=== PATIENT | female | born 1935 | race Caucasian/White ===

== ENCOUNTER → 2016-09-29 | Outpatient (CLI) | payer OTHER, BC ==
[~2016-09-29] MED LIST: ALEVE220 MG PO; AMBIEN 10 MG TA10 MG PO; ATIVAN1 MG PO; CALCIUM CARBO1000 MG PO; CALCIUM PO; CELEXA 10 MG TA10 M1 PO; DAILY VALUE1 EACH PO; DOXEPIN 50MG CA50 M1 GT; FEXOFENADINE-P1 EACH PO; FISH OIL SOFTG1 EACH PO; LISINOPRIL10 MG PO; METOCLOPRAMIDE10 MG PO; OCUVITE TABLET1 EAC1 PO; ONDANSETRON ODT4 MG PO; PRILOSEC 20 MG20 MG PO; SKELAXIN 800 M800 M1 PO; VITAMIN D 11000 UNIT PO; ZOCOR 20 MG TAB20 MG PO; [UNRECOGNIZED DRUG - OTHER] PO; [UNRECOGNIZED DRUG - OTHER] PO
== END ==
LOC: BC 08:54
DX: Z12.31 Encounter for screening mammogram for malignant neoplasm of breast (principal)

== ENCOUNTER → 2017-11-11 | Outpatient (CLI) | payer OTHER, BC | LOC: RAD 01:38 | DX: Z12.31 Encounter for screening mammogram for malignant neoplasm of breast (principal) ==

== ENCOUNTER → 2018-02-23 | Outpatient (CLI) | payer OTHER, BC | LOC: RAD 02-08 14:33 | DX: K21.9 Gastro-esophageal reflux disease without esophagitis (principal); K22.0 Achalasia of cardia; I85.00 Esophageal varices without bleeding; K44.9 Diaphragmatic hernia without obstruction or gangrene; R13.10 Dysphagia, unspecified ==

== ENCOUNTER → 2018-12-30 | Outpatient (CLI) | payer OTHER, BC | LOC: RAD 15:21 | DX: Z12.31 Encounter for screening mammogram for malignant neoplasm of breast (principal) ==

== ENCOUNTER 2019-01-19 08:40 | Day surgery (SDC) | payer OTHER, BC ==
[~2019-01-19] VITALS: Ht 147.3 cm; Wt 62.6 kg
[~2019-01-19 08:40] MED LIST changes: +ALLEGRA ALLERG180 MG PO; +CALCIUM 600 +1 EAC1 PO; +CENTRUM SILVER1 EAC4 PO; +GABAPENTIN 100100 MG PO; +LEVOTHYROXINE0.05 MG PO; +OMEPRAZOLE40 MG PO; +TRAMADOL 50 MG50 MG PO; +TRAZODONE HCL50 MG PO; +VITAMIN D-32000 UNIT PO
[2019-01-19 10:40] VITALS: BP 164/76
--- NOTE | 2019-02-06 06:11 | O ---
[facility] [place] [address] OPERATIVE REPORT Name: ALINA OCASIO Room #: DEP [facility].#: [id number] Admission: 01/19/19 Attend Phys: Robert Alcaraz MD Discharge: 01/19/19 Date of : 39 Report #: [id number] THIS REPORT FOR: //name// CC: ROXIE Alcaraz DATE OF SERVICE: 01/19/2019 SURGEON: Robert Alcaraz MD INTELLECTUAL PROPERTY MANAGER: None. PREOPERATIVE DIAGNOSIS: Bilateral upper lid dermatochalasia with superior visual field defect. POSTOPERATIVE DIAGNOSIS: Bilateral upper lid dermatochalasia with superior visual field defect. OPERATION PERFORMED: Bilateral upper lid functional blepharoplasty. ANESTHESIA: Local with IV sedation. COMPLICATIONS: None. INDICATIONS FOR SURGERY: This patient has acquired upper lid dermatochalasia with superior visual field loss both eyes because of excessive upper lid tissues to include skin and fat. Visual field testing demonstrates dense superior visual defects. Retesting with the upper lid elevated shows an improvement in visual field loss of over 30% and in excess of 12 degrees. The current procedures are undertaken in order to improve the patient's visual function. Informed consent was obtained to include but not limited to the loss of vision, bleeding, infection, scarring, failure to improve the problem and need for further surgery. DESCRIPTION OF OPERATION: The patient was taken to the operating room, where 2% Xylocaine with epinephrine mixed with equal parts of 0.75% Marcaine with Wydase was administered transcutaneously to each upper lid. The patient was then prepped and draped in the usual sterile fashion and a skin-marking pen was then utilized to outline an upper lid crease that was symmetrical on each side. Graefe forceps were then used to quantitate the redundant upper lid skin and it was similarly outlined. The incisions were then made with Estrada scissors and a skin-muscle flap removed from each side with high-temp cautery. Hemostasis was achieved with the monopolar cautery as it was throughout the case. The [address] [address] OPERATIVE REPORT Name: ALINA OCASIO Room #: DEP [facility] [place].#: [id number] Admission: 01/19/19 Attend Phys: Robert Alcaraz MD Discharge: 01/19/19 Date of : 37 Report #: [id number] orbital septum was then identified and the central and medial fat pads were inspected. The redundant soft tissue was then sculpted with the monopolar cautery. The upper lid crease was then reformed with tightening of the pretarsal orbicularis muscle. The upper lid crease was then further reformed with multiple interrupted 6-0 chromic sutures. The skin was then closed with a running 6-0 plain gut suture. The wound was then cleaned and dressed with ophthalmic antibiotic ointment and a nonstick dressing. The patient was transported to the recovery area, where cold compresses were applied, having tolerated the procedure well with no anesthetic or operative complications being noted. <ELECTRONICALLY SIGNED> By: Robert Alcaraz MD 02/06/19 0611 1041 1050 Robert Alcaraz MD /nt
== END 2019-01-19 12:05 | disposition home or self-care (01) ==
LOC: OR 08:40 → TBA 09:05 → OR 12:05
DX: H02.831 Dermatochalasis of right upper eyelid (principal); H02.834 Dermatochalasis of left upper eyelid; H53.462 Homonymous bilateral field defects, left side; H53.461 Homonymous bilateral field defects, right side; E11.9 Type 2 diabetes mellitus without complications; K21.9 Gastro-esophageal reflux disease without esophagitis; Z98.41 Cataract extraction status, right eye; Z98.42 Cataract extraction status, left eye; Z90.710 Acquired absence of both cervix and uterus; Z85.820 Personal history of malignant melanoma of skin; Z90.49 Acquired absence of other specified parts of digestive tract; Z98.0 Intestinal bypass and anastomosis status; Z88.8 Allergy status to other drugs, medicaments and biological substances; Z79.899 Other long term (current) drug therapy; Z98.890 Other specified postprocedural states; Z87.01 Personal history of pneumonia (recurrent)
CPT/HCPCS: 50010; 50101; 50386; 50398; 51636; 56531; 62110; 62850; 70005

== ENCOUNTER 2020-08-06 12:01 | Inpatient (IN) | payer OTHER, BC ==
[~2020-08-06] VITALS: Ht 149.9 cm; Wt 65.8 kg
--- NOTE | ~2020-08-06 | EMS ---
[address] [address] EMS Patient Care Report Name: ALINA OCASIO Room #: REG [facility] Weber#: [id number] Admission: 08/06/20 Attend Phys: Discharge: Date of : 37 Report #: [id number] THIS REPORT FOR: //name// Report Transmitted: 08/06/2020 13:24 EMS Care Summary [place], [place]/[facility] Incident [id number] @ 08/06/2020 11:26 Incident Location [address] [place] [address] Patient ALINA OCASIO Female, 85 Years 1935 Patient Address [address] [address] Patient History None Reported, Patient Allergies Ibuprofen, Patient Medications Other, Chief Complaint forearm injury Disposition Transported No Lights/[place] Dispatch Reason Falls Transported To [facility] Narrative ems entered through garage door. pt found sitting upright on living room floor and alert. pt a&ox4 gcs 15 and presented in mild discomfort. pt stated she fell in he garage approx 4 hrs earlier and crawled to living room. neg loc. neg blood thinners. pt complained of L forearm pain. pt stated she thinks she broke [address] [address] EMS Patient Care Report Name: ALINA OCASIO Room #: REG [facility]#: [id number] Admission: 08/06/20 Attend Phys: Discharge: Date of : 37 Report #: [id number] her arm. pt was assisted upright into chair. exam unremarkable. pt reported pain on rom. pt stated the L forearm has been previously fx. pt agreed to be transported to [facility]. pt stood up and walked around house and collected her belongings. pt was assisted to ems cot. pt was transferred onto ems cot and was secured in a semi fowlers position without incident. pt was loaded into ambulance. pt was transported non emergent. transport was uneventful and pt rested on ems cot. pt care was transferred to appropriate staff and ems goes back in service. pts wallets, phone, and edge baster were left with pt. pts house was locked up. Initial Vitals @11:46P: 100,R: 20,BP: 184/78,Pain: 2/10,GCS: 15,SpO2: 98,Revised Trauma: 12, @11:57P: 100,R: 20,BP: 152/88,GCS: 15,SpO2: 98,Revised Trauma: 12, Assessments @11:36MENTAL:No Abnormalities,SKIN:No Abnormalities,HEENT:Head/Face: No Abnormalities,Eyes: No Abnormalities,Neck/Airway: No Abnormalities,LUNG SOUNDS:General: No Abnormalities,Left Upper: No Abnormalities,Right Upper: No Abnormalities,Left Lower: No Abnormalities,Right Lower: No Abnormalities,ABDOMEN:General: No Abnormalities,Left Upper: No Abnormalities,Right Upper: No Abnormalities,Left Lower: No Abnormalities,Right Lower: No Abnormalities,PELVIS//GI:No Abnormalities,EXTREMITIES:Left Arm: No Abnormalities,Right Arm: No Abnormalities,Left Leg: No Abnormalities,Right Leg: No Abnormalities,PULSE:NEURO:No Abnormalities,@11:48MENTAL:No Abnormalities,SKIN:No Abnormalities,HEENT:Head/Face: No Abnormalities,Eyes: No Abnormalities,Neck/Airway: No Abnormalities,LUNG SOUNDS:General: No Abnormalities,Left Upper: No Abnormalities,Right Upper: No Abnormalities,Left Lower: No Abnormalities,Right Lower: No Abnormalities,ABDOMEN:General: No Abnormalities,Left Upper: No Abnormalities,Right Upper: No Abnormalities,Left Lower: No Abnormalities,Right Lower: No Abnormalities,PELVIS//GI:No Abnormalities,EXTREMITIES:Left Arm: No Abnormalities,Right Arm: No Abnormalities,Left Leg: No Abnormalities,Right Leg: No Abnormalities,PULSE:NEURO:No Abnormalities, Impression Injury of Forearm Procedures @11:36ALS AssessmentResponse: UnchangedSucceeded Timeline 11:26,Call Received 11:26,Dispatch Notified 11:,Dispatched 11:27,En Route 11:35,[place] [address] EMS Patient Care Report Name: ALINA OCASIO Fabian Room #: REG [facility] Weber#: [id number] Admission: 08/06/20 Attend Phys: Discharge: Date of : 39 Report #: [id number] 11:36,At Patient 11:36,ALS Assessment,Response: UnchangedSucceeded, 11:46,BP: 184/78 M,PULSE: 100,RR: 20 R,SPO2: 98 Ox,ETCO2: ,BG: ,PAIN: 2,GCS: 15, 11:48,Depart Scene 11:57,BP: 152/88 M,PULSE: 100,RR: 20 R,SPO2: 98 Ox,ETCO2: ,BG: ,PAIN: ,GCS: 15, 11:58,At Destination 12:08,Call Closed Disclaimer v1.1 Copyright 2020 [employer] This EMS Care Summary contains data elements from the applicable legal record (which may be displayed differently). It is designed to provide pertinent information for the following purposes: continuity of care, clinical quality, and state data reporting. The complete legal record is available to ED staff and administrators of the receiving hospital in [facility] [employer] Patient Tracker. All data is provided "as is."
[2020-08-06 12:01] VITALS: BP 174/83
[2020-08-06 12:49] LABS: BASOPHILS 0.5 % (0.0-2.0); EOSINOPHILS 0.3 % (0.0-3.0); HEMATOCRIT 39.6 % (37.0-47.0); HEMOGLOBIN 13.4 gm/dL (12.0-15.0); LYMPHOCYTES 5.9 % (24.0-44.0); MCH 32.1 pg (26.0-34.0); MCHC 33.7 g/dL (28.0-37.0); MCV 95.3 fL (80.0-100.0); MONOCYTES 4.8 % (1.0-8.0); PLATELET COUNT 199 thou/uL (150-400); POLYS 88.5 % (36.0-66.0); RBC 4.16 mil/uL (4.20-5.00); RDW 13.3 % (10.5-14.5); WBC 12.5 thou/uL (4.0-11.0)
[2020-08-06 12:53] LABS: ANION GAP 15 mmol/L (7-16); BUN 26 mg/dL (7-18); CALCIUM 9.8 mg/dL (8.5-10.1); CHLORIDE 104 mmol/L (98-107); CO2 22 mmol/L (21-32); CREATININE 1.4 mg/dL (0.6-1.0); GLUCOSE 139 mg/dL (74-106); SODIUM 141 mmol/L (136-145)
[2020-08-06 13:03] LABS: ALBUMIN 3.9 g/dL (3.4-5.0); SGOT 30 U/L (15-37); SGPT 35 U/L (14-59); TOTAL BILIRUBIN 0.2 mg/dL (0.2-1.0); TOTAL PROTEIN 7.4 g/dL (6.4-8.2); TROPONIN-I <0.06 ng/mL (<0.06)
--- NOTE | 2020-08-06 17:25 | EKG ---
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 HALE : 1935 Requested By: Wilmer Esquivel Order Number: [id number] MD: Hemanth Moody Measurements Intervals [place] Rate: 93 P: 39 MT: 148 QRS: 12 QRSD: 128 T: -3 QT: 415 QTc: 517 Interpretive Statements Sinus rhythm Right bundle branch block Compared to ECG 09/04/2009 16:25:24 Right bundle-branch block now present Electronically Signed On 08-06-2020 17:25:34 CDT by Hemanth Moody [email or web address] <ELECTRONICALLY SIGNED> By: Hemanth Moody MD, [facility] 08/06/20 1725 1222 1222 Hemanth Moody MD, FACC /EPI
[2020-08-06] MEDS ORDERED: HYDROCHLOROTH12.5 M2 PO (17:38)
[2020-08-06] MEDS ORDERED: LISINOPRIL10 MG PO (17:38)
[2020-08-06] MEDS ORDERED: PRAMIPEXOLE0.125 MG PO (17:38)
[2020-08-06 18:00] VITALS: BP 137/84
[2020-08-06 20:00] VITALS: BP 155/79
[2020-08-06] MEDS ORDERED: FAMOTIDINE20 MG PO (23:06)
[2020-08-06] MEDS ORDERED: VENLAFAXINE HC150 MG PO (23:09)
[2020-08-06] MEDS ORDERED: ZOCOR 20 MG TAB20 M1 PO (23:09)
[2020-08-06] MEDS ORDERED: VITAMIN B-121000 MC2 PO (23:12)
--- NOTE | 2020-08-07 05:41 | NUR ---
Assumed pt care at 1900. Admitted with left elbow dislocation, falls/rhabdo. A/OX4, hard or hearing, didn't bring her hearing aids with her or her glasses. VSS.Up with AX1 RW/GB to the bathroom. Large bruising noted on left elbow,denies pain to arm and is able to move it. Continent of B&B. Lives at home alone. Fall education reinforced and pt calls approp for help. Bed alarm in place,call light/personal items within reach.
[2020-08-07 05:54] LABS: ABSOLUTE NEUTROPHILS 4.7 thou/uL (1.4-8.2); BASOPHILS 0.6 % (0.0-2.0); EOSINOPHILS 1.5 % (0.0-3.0); HEMATOCRIT 34.4 % (37.0-47.0); HEMOGLOBIN 11.6 gm/dL (12.0-15.0); LYMPHOCYTES 25.4 % (24.0-44.0); MCH 32.1 pg (26.0-34.0); MCHC 33.8 g/dL (28.0-37.0); MCV 95.1 fL (80.0-100.0); MONOCYTES 13.4 % (1.0-8.0); PLATELET COUNT 172 thou/uL (150-400); POLYS 59.1 % (36.0-66.0); RBC 3.61 mil/uL (4.20-5.00)
[2020-08-07 06:12] LABS: CALCIUM 8.4 mg/dL (8.5-10.1); POTASSIUM 4.6 mmol/L (3.5-5.1)
[2020-08-07 08:30] VITALS: BP 136/59
--- NOTE | 2020-08-07 13:41 | NUR ---
PT ADMITTED RELATE TO LEFT ELBOW DISLOCATION,FALLS, EARLY RHAMBOMYOSIS. CM REVIEWED CHART AND SPOKE WITH CARE TEAM. CM MET WITH PT AT BEDSIDE THIS DAY. PT APPEARED TO BE A&O X4. CM ROLE INTRODUCED. PT INDICATED SHE LIVES ALONE IN A 3BR RANCH STYLE HOUSE WITH 2 STEPS TO ENTER AND NO STEPS INSIDE. PT INDICATED SHE HAS A FWW FOR USE AT HOME PT INDICATED SHE HAD BEEN INDEPENDENT WITH GAIT AND ADLS STRUCTURAL ARCHITECT. PT INDICATED SHE HAD HH IN THE PAST BUT NOTHING RECENTLY. PT INDICATED SHE HAS SUPPORTIVE FRIENDS, NEIGHBORS, AND A COUSIN. PT INDICATED SHE PLANS TO RETURN HOME ONCE MEDICALLY STABLE. CM FOLLOWING REGARDING DC PLANNING.
--- NOTE | 2020-08-07 14:27 | NUR ---
ASSUMED PT CARE THIS AM. PT VSS, A&OX4. PLEASANT AND ABLE TO MAKE NEEDS KNOWN. REPORTING NO PAIN IN LEFT ARM. LEFT ARM IS SWOLLEN AND RED IN COLOR. REPORTS SOME NUMBNESS INTERMITTENTLY IN THE ARM. PATIENT UP WITH ASSIST AND A WALKER TO BATHROOM. REMAINS CONTINENT. TOOK MEDS WITHOUT COMPLAINT, DENYING SCHEDULED PAIN MEDICATION. IV PATENT, FLUIDS INFUSING. PATIENT HARD OF HEARING. SCD'S ON. FALL PRECAUTIONS ARE IN PLACE.
[2020-08-07 16:00] VITALS: BP 136/89; BP 178/90
[2020-08-07 16:24] VITALS: BP 146/64
[2020-08-07 16:30] VITALS: BP 136/89
[2020-08-07 20:10] VITALS: BP 149/76
--- NOTE | 2020-08-08 04:17 | NUR ---
Patient making progress towards outcome goals. Left arm remains swollen but patient denies pain.IVfluids infusing. High fall risks, fall precautions in place. Calls out appropriately for needs. Still need urine specimen for UA, patient missing hat for collection each time she goes.
[2020-08-08 05:45] LABS: HEMATOCRIT 31.7 % (37.0-47.0); HEMOGLOBIN 10.7 gm/dL (12.0-15.0); MCH 32.3 pg (26.0-34.0); MCHC 33.8 g/dL (28.0-37.0); MCV 95.7 fL (80.0-100.0); RBC 3.31 mil/uL (4.20-5.00); RDW 13.2 % (10.5-14.5); WBC 7.1 thou/uL (4.0-11.0)
[2020-08-08 06:19] LABS: CALCIUM 7.9 mg/dL (8.5-10.1); CREATININE 1.1 mg/dL (0.6-1.0)
[2020-08-08 07:54] VITALS: BP 146/65
[2020-08-08 12:06] LABS: URINE BILIRUBIN NEGATIVE (Negative); URINE BLOOD NEGATIVE (Negative); URINE CLARITY CLEAR; URINE COLOR YELLOW; URINE GLUCOSE-RANDOM* NEGATIVE (Negative); URINE KETONES NEGATIVE (Negative); URINE LEUKOCYTES-REFLEX TRACE (Negative); URINE NITRITE-REFLEX NEGATIVE (Negative); URINE PROTEIN (DIPSTICK) NEGATIVE (Negative); URINE UROBILINOGEN 0.2 E.U./dl (0.2-1.0)
--- NOTE | 2020-08-08 12:36 | NUR ---
ASSUMED PT CARE THIS AM. PT VSS, A&OX4. PATIENT PLEASANT AND ABLE TO MAKE NEEDS KNOWN. HAS NO COMPLAINTS OF PAIN. LEFT ARM IS SWOLLEN, BUT PATIENT IS ABLE TO MOVE THE ARM. IV PATENT, FLUIDS INFUSING. ON ROOM AIR. PATIENT UP WITH ASSIST. FALL PRECAUTIONS IN PLACE.
[2020-08-08 12:44] VITALS: BP 146/65
[2020-08-08 13:24] VITALS: BP 146/65
--- NOTE | 2020-08-08 13:25 | NUR ---
CARE TEAM INDICATED THAT PT IS MEDICALLY STABLE TO DC HOME THIS DAY. 5N HAD MET WITH PT BUT SHE INDICATED THAT SHE WANTED TO RETURN HOME AND WASN'T INTERESTED IN ANY SORT OF POST ACUTE CARE STAY. PT WAS RECEPTIVE TO HH UPON DC. SHE INDICATED NO PREFERENCE IN PROVIDER. REFERRAL SENT TO [facility]. THEY ARE ABLE TO ACCEPT PT. PT HAS TRANSPORT HOME THIS DAY. ORDERS FAXED TO [facility] NO OTHER CM INTERVENTION INDICATED. CASE CLOSED.
--- NOTE | 2020-08-10 09:22 | HC ---
[facility] [place] [address] CONSULTATION Name: ALINA OCASIO Room #: 464-P [facility] M.R.#: [id number] Admission: 08/06/20 Attend Phys: Ian Jones MD Discharge: 08/08/20 Date of : 39 Report #: [id number] THIS REPORT FOR: cc: Anuradha Uriostegui MD, Kristin E. MD Clymer, David J. MD ~ CHIEF COMPLAINT: Left elbow dislocation. HISTORY OF PRESENT ILLNESS: This frail, but still alert and independent 85-year-old female who states that she lives alone in her own home with some limited family assistance. She stumbled at home and fell injuring the left elbow. She was brought to [facility] where x-rays confirm a posterior dislocation of the left elbow. I believe she had no other significant injuries. The elbow was reduced under light sedation and subsequent x-rays and CT scan reveal essentially anatomic alignment with minor periarticular avulsion fractures consistent with dislocation, but without more severe bony injury. She is being monitored for any other medical problems, but at this point, states she is feeling well and is anxious for discharge from the hospital tomorrow. She actually hopes go back to her own home where she is living independently, although she does note she is looking for other extended care facilities for long-term care. At the time of my evaluation, she is alert and oriented and seems quite reasonable, although she is hard of hearing. She denies any other areas of discomfort aside from the left elbow. The left elbow reveals significant bruising and swelling; however, the elbow is in good alignment and she demonstrates surprisingly good range of motion without any significant subjective discomfort. The elbow seems stable without crepitus nor much pain with very gentle range of motion. The wrist and hand reveal good alignment, range of motion without discomfort. Neurologic evaluation seems to be normal. I have reviewed her x-rays and CT scan. These reveal a posterior dislocation without significant fracture, which was then reduced in anatomic position and confirmed on both x-rays and CT scan. I have discussed these issues with the patient noting that she certainly needs to be careful to avoid any excessive stress or hyperextension on the elbow over the coming few weeks. We discussed whether this might be best managed with a removable splint or arm sling, but she is rather adamant that she can manage this by simply being careful and avoiding any vigorous activity or excessive movement with the left elbow. She is indeed doing quite nicely at this point and demonstrates good range of motion in a safe fashion and without much discomfort. I have explained that she is at risk for repeat dislocation. If she should have another event and she notes that she understands well. She states she plans to go home tomorrow pending medical clearance. I have discussed with her that she may require some additional assistance at least for [address] [address] CONSULTATION Name: ALINA OCASIO Fabian Room #: 464-P [facility] M.R.#: [id number] Admission: 08/06/20 Attend Phys: Ian Jones MD Discharge: 08/08/20 Date of : 39 Report #: [id number] a period of time and she states she is already looking into that on a long-term basis, but has not selected an extended care facility yet. She prefers to go home with family or neighbor assistance before making a decision to move on to some other facility. I have suggested she should be very cautious with the left arm over the coming 2 weeks and then would suggest a followup visit in my office for followup x-ray in 2-3 weeks. I am certainly happy to see her sooner if there should be problems or questions. <ELECTRONICALLY SIGNED> By: Bob Matos MD 08/10/20 0922 [id number] Bob Matos MD /nt
== END 2020-08-08 14:38 | disposition home health service (06) | DRG 510 ==
LOC: ER 12:01 → EROBS 17:27 → 4W 17:27
PROVIDERS: Nurse Practitioner; ADMIT Hospitalist; ATTEND Hospitalist
PROC: 0RSM0ZZ Reposition Left Elbow Joint, Open Approach (ICD-10-PCS; principal; 2020-08-06)
DX: S53.025A Posterior dislocation of left radial head, initial encounter (principal); R65.11 Systemic inflammatory response syndrome (SIRS) of non-infectious origin with acute organ dysfunction; N17.9 Acute kidney failure, unspecified; M62.82 Rhabdomyolysis; K21.9 Gastro-esophageal reflux disease without esophagitis; E03.9 Hypothyroidism, unspecified; D72.829 Elevated white blood cell count, unspecified; I10 Essential (primary) hypertension; E78.5 Hyperlipidemia, unspecified; M81.0 Age-related osteoporosis without current pathological fracture; R53.81 Other malaise; Z66 Do not resuscitate; Z74.1 Need for assistance with personal care; I16.0 Hypertensive urgency; Z60.2 Problems related to living alone; E53.8 Deficiency of other specified B group vitamins; Z98.42 Cataract extraction status, left eye; Z98.41 Cataract extraction status, right eye; Z90.710 Acquired absence of both cervix and uterus; Z90.49 Acquired absence of other specified parts of digestive tract; Z88.6 Allergy status to analgesic agent; Z88.8 Allergy status to other drugs, medicaments and biological substances; W18.39XA Other fall on same level, initial encounter; Y93.89 Activity, other specified; Y92.098 Other place in other non-institutional residence as the place of occurrence of the external cause; Y99.8 Other external cause status
CPT/HCPCS: 10040